=== PATIENT | male | born 1980 | race African-American/Black ===

== ENCOUNTER 2016-06-20 12:08 | Emergency (ER) | payer BC ==
--- NOTE | 2016-06-22 09:22 | ER ---
ADMIT: 06/20/2016 RM/LOC: ER [facility] MR#: [id number] [facility] [address], [place] [id number] LEILA MONIQUE [address] [id number] Emergency Room Report SEX: M AGE: 36 : 1980 DATE: 06/20/2016 ADDENDUM: CHIEF COMPLAINT: Shakiness. HISTORY OF PRESENT ILLNESS: This 36-year-old who has been having some insomnia. He is sometimes able to sleep and lot of times he wakes up to nightmares and cannot sleep. He thinks about times when he was back in [place]. I am prescribing him Valium 5 mg 1 tab every 8 hours as needed for anxiety, dispensing 15. Told him it is very important that he needs to follow up with PCP for long-term depression and anxiety treatment. CLINICAL IMPRESSION: Anxiety and stress. DISPOSITION: Stable at discharge, will follow up as needed. KRYSTEN Carmona / Carlos A Figueroa MD / modl JOB #: [id number] CC: Carlos A Figueroa MD, Attending Physician
== END 2016-06-20 13:20 | disposition home or self-care (01) ==
LOC: ER 12:08
DX: F41.9 Anxiety disorder, unspecified (principal); F43.9 Reaction to severe stress, unspecified; F17.210 Nicotine dependence, cigarettes, uncomplicated